=== PATIENT | female | born 1995 | race Caucasian/White ===

== ENCOUNTER 2019-07-22 20:17 | Emergency (ER) | payer MEDICAID, OTHER ==
[~2019-07-22] VITALS: Ht 165.1 cm; Wt 77.3 kg
[2019-07-22 20:58] VITALS: BP 127/75
[2019-07-22] MEDS ORDERED: HYDR-3686 PO (21:07)
[2019-07-22] MEDS ORDERED: LORazepam 1 MG tablet PO ONE (21:10)
== END 2019-07-22 21:29 | disposition home or self-care (01) ==
LOC: ER 20:18
DX: F41.0 Panic disorder [episodic paroxysmal anxiety] (principal); Z88.5 Allergy status to narcotic agent; Z79.899 Other long term (current) drug therapy
CPT/HCPCS: 99283

== ENCOUNTER 2021-07-05 20:05 | Emergency (ER) | payer BC ==
[~2021-07-05] VITALS: Ht 165.1 cm; Wt 79.5 kg
[2021-07-05 22:53] VITALS: BP 106/55
--- NOTE | 2021-07-05 23:00 | NUR ---
GABE AT BEDSIDE TO SEE PATIENT.
[2021-07-05 23:26] LABS: HEMOGLOBIN 13.8 g/dl (12.0-16.0)
[2021-07-05 23:28] LABS: BASOPHILS % (AUTO) 0.5 % (0-1); EOSINOPHILS % (AUTO) 0.5 % (0-6); LYMPHOCYTES % (AUTO) 25.3 % (21-51); MEAN CORPUSCULAR HEMOGLOBIN 28.6 PG (27.0-31.0); MEAN CORPUSCULAR HGB CONC 33.8 g/dL (33.0-36.5); MEAN CORPUSCULAR VOLUME 84.7 FL (78-98); MEAN PLATELET VOLUME 8.7 FL (7.4-10.4); MONOCYTES # (AUTO) 0.4 X10'3 (0-0.9); MONOCYTES % (AUTO) 4.9 % (2-12); NEUTROPHILS # (AUTO) 5.3 X10'3 (1.8-7.7); NEUTROPHILS % (AUTO) 68.8 % (42-75); PLATELET COUNT 330 X10'3 (140-440); RED BLOOD COUNT 4.83 X10'6 (4.20-5.60); RED CELL DISTRIBUTION WIDTH 12.6 % (11.5-14.5); WHITE BLOOD COUNT 7.7 X10'3 (4.5-11.0)
[2021-07-05 23:47] LABS: ALANINE AMINOTRANSFERASE 29 U/L (12-78); ALBUMIN/GLOBULIN RATIO 0.9 (1.1-1.5); ANION GAP 10 (8-16); ASPARTATE AMINO TRANSFERASE 17 U/L (10-37); BILIRUBIN,TOTAL 0.3 MG/DL (0.1-1.0); BLOOD UREA NITROGEN 10 MG/DL (7-18); BUN/CREATININE RATIO 15.2 (6.6-38.0); CALCIUM 9.3 MG/DL (8.5-10.1); CHLORIDE 106 MMOL/L (99-107); CREATININE 0.66 MG/DL (0.40-0.90); GLUCOSE 108 MG/DL (70-104); SODIUM 140 MMOL/L (135-145); TOTAL CARBON DIOXIDE 24.1 MMOL/L (24-32); TOTAL PROTEIN 8.3 G/DL (6.4-8.2); eGFR > 90 ML/MIN
[2021-07-05 23:50] LABS: ETHANOL < 0.010 GM/DL (0.0-0.010)
[2021-07-06] MEDS ORDERED: naproxen 500mg tablet PO ONE
== END 2021-07-06 00:26 | disposition home or self-care (01) ==
LOC: ER 20:05
DX: R07.89 Other chest pain (principal); R00.2 Palpitations; R00.0 Tachycardia, unspecified; R07.2 Precordial pain; F41.9 Anxiety disorder, unspecified; Z88.5 Allergy status to narcotic agent
CPT/HCPCS: 36415; 71045; 80053; 80320; 83735; 84443; 84484; 85025; 93005; 99285

== ENCOUNTER 2022-06-07 09:48 | Emergency (ER) | payer BC ==
[~2022-06-07] VITALS: Ht 165.1 cm; Wt 79.0 kg
[2022-06-07 10:35] LABS: CLARITY,URINE CLEAR (Clear); COLOR,URINE YELLOW (Yellow); GLUCOSE, URINE NEGATIVE (Neg); KETONES,URINE NEGATIVE (Neg); LEUKOCYTE ESTERASE ,URINE NEGATIVE (Neg); NITRITES, URINE NEGATIVE (Neg); OCCULT BLOOD,URINE NEGATIVE (Neg); PROTEIN,URINE NEGATIVE (Neg); UROBILINOGEN,URINE 0.2 E.U/dL (0.2-1.0)
[2022-06-07 10:37] LABS: URINE HCG NEGATIVE (NEG)
[2022-06-07 10:38] LABS: UA COLLECTION TYPE CLN CATCH MIDSTREAM
--- NOTE | 2022-06-07 10:38 | NUR ---
Urine sent to lab by molina DE LEÓN @ [id number].
[2022-06-07] MEDS ORDERED: dexamethasone sod phosphate 10mg/ml inj IV STA (11:18)
[2022-06-07] MEDS ORDERED: normal saline 1000ML IV soln IVB ONE (11:20)
[2022-06-07] MEDS ORDERED: metoclopramide 5 mg/ml inj IV ONE (11:20)
[2022-06-07] MEDS ORDERED: LORazepam 2 mg/ml vial IV ONE (11:20)
[2022-06-07] MEDS ORDERED: ketorolac trometh. 30mg/ml inj. IV ONE (11:20)
--- NOTE | 2022-06-07 11:27 | NUR ---
Patient endorsed to ALETHA BAILEY.
[2022-06-07 12:29] VITALS: BP 133/79
== END 2022-06-07 12:42 | disposition home or self-care (01) ==
LOC: ER 09:49
DX: G43.909 Migraine, unspecified, not intractable, without status migrainosus (principal); R53.83 Other fatigue; R11.10 Vomiting, unspecified; F41.9 Anxiety disorder, unspecified; Z88.5 Allergy status to narcotic agent
CPT/HCPCS: 70450; 81003; 81025; 96361; 96374; 96375; 99285; J1100; J1885; J2060; J2765; J7030

== ENCOUNTER 2025-01-16 16:59 | Emergency (ER) | payer BC, MEDICAID ==
[~2025-01-16] VITALS: Ht 162.6 cm; Wt 87.0 kg
--- NOTE | 2025-01-16 17:15 | ELECTROCARDIOGRAPH REPORT ---
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
[2025-01-16 17:30] LABS: MEAN PLATELET VOLUME 9.0 FL (7.4-10.4); RED CELL DISTRIBUTION WIDTH 13.9 % (11.5-14.5)
[2025-01-16 17:46] LABS: CREATININE 0.57 MG/DL (0.40-0.90); PRO BRAIN NATRIURETIC PEPTIDE 70 PG/ML (0-125); TOTAL CARBON DIOXIDE 24.2 MMOL/L (24-32); eCRCL 126 ML/MIN; eGFR > 90 ML/MIN
--- NOTE | 2025-01-16 18:04 | VASCULAR REPORT ---
Bilateral lower extremity venous duplex Clinical History: right lower extremity swelling Comparison: None Technique: Duplex Doppler evaluation of the deep venous systems of the right lower extremities from the common f emoral veins to the popliteal veins including color Doppler and spectral/pulsed waveform analysis was performed. Findings: RIGHT SIDE: The common femoral vein demonstrates appropriate compressibility and waveform variability. There is compressibility/patency of the great saphenous vein at the proximal thigh. The femoral vein demonstrates appropriate compressibility and waveform variability. The deep femoral vein demonstrates appropriate compressibility and waveform variability. The popliteal vein demonstrates appropriate compressibility and waveform variability. There is normal compressibility at the tibioperoneal trunk. Impression: 1. No right femoropopliteal venous thrombosis.
--- NOTE | 2025-01-16 18:14 | Physician Documentation ---
History of Present Illness ~ Chief Complaint: Leg Pain Stated Complaint: TACHYCARDIA Time Seen by MD: 18:08 OK to notify your PCP?: Yes Primary Medical Doctor: Dr. Hare [facility] Source: patient Mode of Arrival: POV Exam Limitations: no limitations HPI 29 y/o female with right calf and leg pain [id number]. No changes in activity, shoes or precipitating causes. No swelling of her leg, skin color changes. Not on control, nonsmoker, no personal or family history of blood clots. No chest pain, sob. Tetanus witin 5 years: Yes Medication Reconciliation Allergies: Coded Allergies: codeine (Verified Allergy, Unknown, 01/16/25) Past Medical History Past Medical History: Migraine, *CARDIOVASCULAR*, Thyroid (unspecified), Anxiety Past Surgical History: no surgical history Lives with: Spouse Lives In: Home Review of Systems All Other Systems at this time: Reviewed and Negative Physical Exam Vital Signs: Temperature: 97.9, Source: Temporal, Heart Rate: 102, Respiratory Rate: 18, BP: 118/73, Pulse Oximetry: 100, Weight: 87.000 Oxygen Flow Rate: 0 Physical Exam GENERAL: Alert, no acute distress. HEENT: NCAT, EOMI, PERRL, normal oropharynx, moist oral mucosa. NECK: Supple, trachea midline. CARDIAC: Regular rate and rhythm, no murmurs, rubs, or gallops. PV: Equal distal pulses. No lower extremity edema, cap refill less than 2 seconds. RESPIRATORY: Equal breath sounds, clear to auscultation bilaterally, no respiratory distress. GASTROINTESTINAL: Non distended, soft, nontender, No guarding or rebound. MUSCULOSKELETAL: Normal range of motion, nontender, no swelling. Normal gait. NEUROLOGICAL: Awake, alert, and oriented x 3. SKIN: Warm/dry, no pallor, no rash. PSYCH: Alert and appropriate. Affect congruent with mood. Speech is clear. Good eye contact. Progress Results/Orders Results/Orders Vital Signs 01/16/25 01/16/25 01/16/25 17:06 18:10 18:26 Temp 97.9 98.4 Pulse 102 92 Resp 18 16 16 B/P (MAP) 118/73 122/70 Pulse Ox 100 99 O2 Flow Rate 0 Laboratory Tests Test 01/16/25 17:10 White Blood Count 7.2 Red Blood Count 5.02 Hemoglobin 14.1 Hematocrit 42.4 Mean Corpuscular Volume 84.6 Mean Corpuscular Hemoglobin 28.1 Mean Corpuscular Hemoglobin Concent 33.3 Red Cell Distribution Width 13.9 Platelet Count 307 Mean Platelet Volume 9.0 Neutrophils (%) (Auto) 64.5 Lymphocytes (%) (Auto) 28.6 Monocytes (%) (Auto) 6.0 Eosinophils (%) (Auto) 0.4 Basophils (%) (Auto) 0.5 Neutrophils # (Auto) 4.6 Lymphocytes # (Auto) 2.1 Monocytes # (Auto) 0.4 Eosinophils # (Auto) 0.0 Basophils # (Auto) 0.0 CBC Comment Sodium Level 138 Potassium Level 3.9 Chloride Level 106 Carbon Dioxide Level 24.2 Anion Gap 8 Blood Urea Nitrogen 8 Creatinine 0.57 Estimated GFR/1.73 m2 > 90 BUN/Creatinine Ratio 14.0 Glucose Level 103 Calcium Level 9.4 Pro-B-Type Natriuretic Peptide 70 Albumin 4.1 Chemistry Comments Medical Decision Making General Diff Dx:Considerations: Include: Abrasion, Contusion, Fracture, He matoma, Laceration, Malunion, Neurovascular injury, Open fracture, Sprain, Ulcer Additional Comment VASCULAR U/S NEGATIVE FOR DVT, NO SIGN OF CELLULITIS, PHELBITIS, FRACTURE, CONTUSION, SPRAIN Departure Time of Disposition: 17:25 Disposition: 01 HOME / SELF CARE / HOMELESS Impression: Primary Impression: Leg pain, right Condition: Stable Discharge Instructions: General Discharge Instructions Additional Instructions: IMAGING NEGATIVE FOR DVT F/U WITH PCP FOR OTHER POSSIBLE CAUSES Referrals: NO PRIMARY CARE PROVIDER (PCP) Education Educated: Patient Educated regarding: diagnosis, treatment, need for follow up Signature Scribe Signature: Abraham Attestation: TRAVIS TURNER Jan 16, 2025 18:14
[2025-01-16 18:26] VITALS: BP 122/70; PULSE 92; RESP 16; TEMP 98.4; O2SAT 99
== END 2025-01-16 18:30 | disposition home or self-care (01) ==
LOC: ER 17:00
DX: M79.661 Pain in right lower leg (principal); G43.909 Migraine, unspecified, not intractable, without status migrainosus; F41.9 Anxiety disorder, unspecified; Z88.5 Allergy status to narcotic agent
CPT/HCPCS: 36415; 80048; 83880; 85025; 93005; 93971; 99284; J7030

== ENCOUNTER 2025-03-11 15:19 | Emergency (ER) | payer MEDICAID ==
[~2025-03-11] VITALS: Ht 165.1 cm; Wt 87.0 kg
[2025-03-11 16:29] VITALS: TEMP 97.4
[2025-03-11 16:55] LABS: MEAN PLATELET VOLUME 8.7 FL (7.4-10.4); RED CELL DISTRIBUTION WIDTH 13.4 % (11.5-14.5)
[2025-03-11 17:12] LABS: CREATININE 0.51 MG/DL (0.40-0.90); TOTAL CARBON DIOXIDE 28.7 MMOL/L (24-32); eCRCL 145 ML/MIN; eGFR > 90 ML/MIN
--- NOTE | 2025-03-11 17:56 | Physician Documentation ---
History of Present Illness ~ Chief Complaint: Abdominal Pain Stated Complaint: R ABD PAIN Time Seen by MD: 20:26 Primary Medical Doctor: Dr. Hare, [facility] HPI This is a 30-year-old female who presents with one day of right lower quadrant pain with nausea onset last night. Patient reports no fever. Medication Reconciliation Allergies: Coded Allergies: codeine (Verified Allergy, Unknown, 03/11/25) Scheduled PRN ONDANSETRON ODT 4mg tablet (Ondansetron Odt), 1 TAB PO Q6H PRN PRN for nausea/vomiting Past Medical History Past Medical History: Migraine, *CARDIOVASCULAR*, Thyroid (unspecified), Anxiety Past Surgical History: no surgical history Lives with: Spouse Lives In: Home Review of Systems ROS As stated above in the HPI, otherwise all systems are reviewed and negative. Physical Exam Vital Signs: Temperature: 97.4, Source: Temporal, Heart Rate: 75, Respiratory Rate: 18, BP: 116/49, Pulse Oximetry: 100, Weight: 87.000 Physical Exam VITALS: Reviewed and as above. GENERAL: Alert, nontoxic appearing, no apparent distress. RESPIRATORY: No increased work of breathing, no respiratory distress, speaking in full clear sentences, clear lung sounds [place] CV: Regular rate and rhythm no murmur BACK: No CVA tenderness GI: Mild tenderness to palpation to right lower quadrant otherwise soft, nontender, no rebound, no guarding, bowel sounds present MUSCULOSKELETAL: SKIN: Warm and dry no ecchymosis Progress Results/Orders Results/Orders Orders - HAIR FONTANEZP Ultrasound Of Abdomen (03/11/25 19:46) Completed Orders - HAIR FONTANEZ [facility] Ultrasound Of Abdomen (03/11/25 19:46) Vital Signs 03/11/25 03/11/25 16:29 22:19 Temp 97.4 Pulse 75 74 Resp 18 15 B/P (MAP) 116/49 122/75 (91) Pulse Ox 100 99 Laboratory Tests Test 03/11/25 16:39 03/11/25 20:45 White Blood Count 6.8 Red Blood Count 4.96 Hemoglobin 13.9 Hematocrit 41.7 Mean Corpuscular Volume 84.1 Mean Corpuscular Hemoglobin 28.1 Mean Corpuscular Hemoglobin Concent 33.4 Red Cell Distribution Width 13.4 Platelet Count 317 Mean Platelet Volume 8.7 Neutrophils (%) (Auto) 59.5 Lymphocytes (%) (Auto) 31.9 Monocytes (%) (Auto) 6.8 Eosinophils (%) (Auto) 0.5 Basophils (%) (Auto) 1.3 H Neutrophils # (Auto) 4.0 Lymphocytes # (Auto) 2.2 Monocytes # (Auto) 0.5 Eosinophils # (Auto) 0.0 Basophils # (Auto) 0.1 CBC Comment Sodium Level 139 Potassium Level 3.8 Chloride Level 106 Carbon Dioxide Level 28.7 Anion Gap 4 L Blood Urea Nitrogen 9 Creatinine 0.51 Estimated GFR/1.73 m2 > 90 BUN/Creatinine Ratio 17.6 Glucose Level 112 H Calcium Level 9.0 Total Bilirubin 0.2 Aspartate Amino Transf (AST/SGOT) 18 Alanine Aminotransferase (ALT/SGPT) 25 Alkaline Phosphatase 113 Total Protein 7.5 Albumin 3.8 Globulin 3.7 Albumin/Globulin Ratio 1.0 L Amylase Level 41 Lipase 25 Chemistry Comments Urine Specimen Description Cln catch midstream Urine Color Yellow Urine Clarity Clear Urine pH 6.0 Urine Specific [place] 1.025 Urine Protein Negative Urine Glucose (UA) Negative Urine Ketones Trace H Urine Occult Blood Negative Urine Nitrite Negative Urine Bilirubin Negative Urine Urobilinogen 0.2 Urine Leukocyte Esterase Negative Urine Culture Indicated Not ind Volume Urine Centrifuged 10 ml Urine HCG, Qualitative Negative Urine Comment EKG/XRAY/CT/US/VASC/MRI Ultrasound : Impression Exam: ULTRASOUND OF ABDOMEN INDICATION: RUQ Pain TECHNIQUE: Multiple real-time sonographic images were obtained of the right upper quadrant. COMPARISON: None FINDINGS: The liver demonstrates increased echotexture without focal mass lesions. The liver measures 17.7 cm. There is no intrahepatic or extrahepatic ductal dilatation. The common duct measures 0.4 cm. Gallbladder sludge is present. The gallbladder wall measures 0.3 cm and is within normal limits. The right kidney measures 10.7 cm. The right kidney is normal in contour, size, and shape. The echogenicity is normal. There is no hydronephrosis. The pancreas is not well visualized due to overlying bowel gas. IMPRESSION: Gallbladder sludge is present. Hepatic steatosis and hepatomegaly. Electronically Signed by:LEX HERNANDEZ MD Date & Time: 03/11/252114 Dictated by: LEX HERNANDEZ MD Dictation date and time: 03/11/252114 Medical Decision Making Additional information obtaine: N/A Findings MSE performed in triage and patient returned to ED lobby by nursing staff to await available ED room This 30-year-old female presented with right lower quadrant abdominal pain with a past day along with loose stools the past four days, reassuringly patient reports that she has had her appendix out and physical exam demonstrated no rebound tenderness. Physical exam significant for mild right lower quadrant tenderness without guarding otherwise physical exam benign. Patient is otherwise well, labs did not demonstrate evidence of acute infection or metabolic dysfunction. As patient reported pain did travel around somewhat over the past day in her right upper and lower quadrant an ultrasound was obtained of the right quadrants of the abdomen with only significant finding being some sludge in gallbladder otherwise ultrasound was unremarkable. At a lengthy discussion with the patient about further workup and with shared decision-making patient will opt for watchful waiting. I discussed careful return to care precautions, follow up instructions, and home care instructions with the patient who verbalized understanding. Diff Dx GI Bleed:Consideration: Unlikely: AE fistula, Angiodysplasia, Bleeding diathesis, Blood loss anemia, Carcinoma, Diverticulosis, Diverticulitis, Esophageal varicies, Esophagitis, Gastritis, Gastroenteritis, Inflammatory BD, Deanna-Rosa syndrome, Meckel's diverticulum, PUD, Other Diff Dx Pain:Considerations: Include: -Complete, -Incomplete, -Inevitable, -Missed, -Threatened, Abruptio placentae, Angina/NM, Appendicitis, Cholangitis, Esophagitis, Gastritis/PUD, Gastroenteritis, GI hemorrhage, Inflammatory BD, Ischemic bowel, Mass, Ovarian cyst/torsion, Urinary obstruction, Urinary tract infection, Urolithiasis Diff Dx N/V/D:Considerations: Include: Appendicitis, Electrolyte imbalance, Food poisoning, Gastroenteritis Diff Dx Rectal:Considerations: Unlikely: Fissure, Fistula, Foreign body, Impaction, Perirectal abscess, Rectal prolapse, Subcutaneous abscess, Thrombosed hemorrhoid, Ulcer, UTI, Other Departure Time of Disposition: 21:59 Disposition: 01 HOME / SELF CARE / HOMELESS Impression: Primary Impression: Abdominal pain Qualified Codes: R10.31 - Right lower quadrant pain Condition: Improved Discharge Instructions: Abdominal Pain (Nonspecific) Additional Instructions: Your lab work and ultrasound was reassuring, we could not find a clear cause of your abdominal pain and as we discussed not all possibilities has been fully ruled out. Your ultrasound did show evidence of gallbladder sludge which should be followed up with your primary care provider outpatient should a cause you problems in the future. Please use the prescribed Zofran as needed for nausea or vomiting. Stay well hydrated. Please follow up with your primary care provider in the next few days. Please return to the emergency department for any new or worsening concerning symptoms including but not limited to persistent or bloody diarrhea, worsening abdominal pain, or if you develop a fever over 100.4 that does not lower with ibuprofen or Tylenol. Referrals: NO PRIMARY CARE PROVIDER (PCP) Prescriptions ONDANSETRON ODT 4mg tablet (ONDANSETRON ODT) 4 Mg Tab.rapdis 1 TAB PO Q6H PRN PRN for nausea/vomiting for 4 Days, #16 TAB 0 Refills Prov: HAIR FONTANEZ 03/11/25 Education Educated: Patient Educated regarding: diagnosis, treatment, prognosis, need for follow up Signature Scribe Signature: No scribe Attestation: The note accurately reflects work and decisions made by me.ANJELICA Marrero 03/12/25 01:37 HAIR FONTANEZ Mar 11, 2025 17:56
[2025-03-11 20:58] LABS: URINE HCG NEGATIVE (NEG)
[2025-03-11 21:01] LABS: LEUKOCYTE ESTERASE ,URINE NEGATIVE (Neg); NITRITES, URINE NEGATIVE (Neg); OCCULT BLOOD,URINE NEGATIVE (Neg)
[2025-03-11 21:15] LABS: UA COLLECTION TYPE CLN CATCH MIDSTREAM
--- NOTE | 2025-03-11 21:18 | RADIOLOGY REPORT ---
INDICATION: RUQ Pain TECHNIQUE: Multiple real-time sonographic images were obtained of the right upper quadrant. COMPARISON: None FINDINGS: The liver demonstrates increased echotexture without focal mass lesions. The liver measures 17.7 cm. There is no intrahepatic or extrahepatic ductal dilatation. The common duct measures 0.4 cm. Gallbladder sludge is present. The gallbladder wall measures 0.3 cm and is within normal limits. The right kidney measures 10.7 cm. The right kidney is normal in contour, size, and shape. The echogenicity is normal. There is no hydronephrosis. The pancreas is not well visualized due to overlying bowel gas. IMPRESSION: Gallbladder sludge is present. Hepatic steatosis and hepatomegaly.
[2025-03-11] MEDS ORDERED: ONDA-243 PO (21:59)
[2025-03-11 22:19] VITALS: BP 122/75; PULSE 74; RESP 15; O2SAT 99
== END 2025-03-11 22:19 | disposition home or self-care (01) ==
LOC: ER 15:20
DX: R10.31 Right lower quadrant pain (principal); G43.909 Migraine, unspecified, not intractable, without status migrainosus; F41.9 Anxiety disorder, unspecified; Z88.5 Allergy status to narcotic agent
CPT/HCPCS: 36415; 80053; 81003; 81025; 82150; 83690; 85025; 99284